=== PATIENT | female | born 1950 | race Caucasian/White ===

== ENCOUNTER 2019-01-16 22:25 | Emergency (ER) | payer MEDICARE ==
--- NOTE | 2019-01-16 23:08 | Emergency Department Report ---
ED General Adult HPI - General Chief complaint: Pain General Stated complaint: CHEST PAIN Time Seen by Provider: 01/16/19 22:59 Source: patient, EMS Mode of arrival: Stretcher Limitations: Language Barrier - History of Present Illness Initial comments: 68 yo F, hx of chronic colitis, chronic gastritis, osteoarthritis, cervical radiculopathy, chronic headaches, fibromyalgia presents from [facility] with complaint of chronic total body pain. Patient states she is not currently receiving any pain medication at [facility]. States she was taking pantoprazole and tizanidine. Patient reports that she is hungry and that she is not being fed at [facility]. -: Gradual Location: head, abdomen, left, right, upper extremity, lower extremity Quality: aching Consistency: constant Improves with: medication Worsens with: none Associated Symptoms: denies: fever/chills, loss of appetite, nausea/vomiting, shortness of breath - Related Data Allergies Allergy/AdvReac Type Severity Reaction Status Date / Time peanut Allergy Unknown Verified 01/16/19 23:31 ED Review of Systems ROS: Stated complaint: CHEST PAIN Other details as noted in HPI Comment: All other systems reviewed and negative Constitutional: denies: chills, fever Gastrointestinal: abdominal pain. denies: nausea, vomiting Musculoskeletal: arthralgia Neurological: headache ED Past Medical Hx - Past Medical History Hx GERD: Yes Additional medical history: fibromyalgia, gastritis - Surgical History Hx Cholecystectomy: Yes Hx Appendectomy: Yes Additional Surgical History: hysterectomy - Social History Smoking Status: Former Smoker Substance Use Type: None ED Physical Exam - General Limitations: Language Barrier General appearance: alert, in no apparent distress - Head Head exam: Present: atraumatic, normocephalic - Eye Eye exam: Present: normal appearance, PERRL, EOMI - ENT ENT exam: Present: mucous membranes moist - Neck Neck exam: Present: normal inspection - Respiratory Respiratory exam: Present: normal lung sounds bilaterally. Absent: respiratory distress - Cardiovascular Cardiovascular Exam: Present: normal rhythm, bradycardia - GI/Abdominal GI/Abdominal exam: Present: soft. Absent: distended, tenderness - Extremities Exam Extremities exam: Present: normal inspection - Neurological Exam Neurological exam: Present: alert, oriented X3, CN II-XII intact - Psychiatric Psychiatric exam: Present: normal affect, normal mood - Skin Skin exam: Present: warm, dry, intact, normal color ED Course Vital Signs 0901/16/19 01/16/19 22:51 23:23 23:55 Temperature 98 F Pulse Rate 56 L 56 L Respiratory 18 20 20 Rate Blood Pressure 153/67 Blood Pressure 142/71 [Right] O2 Sat by Pulse 99 100 99 Oximetry 01/17/19 01:37 Temperature 98.0 F Pulse Rate 60 Respiratory 20 Rate Blood Pressure Blood Pressure 103/62 [Right] O2 Sat by Pulse 99 Oximetry - Reevaluation(s) Reevaluation #1: 01/17/19 00:39 Pt given a meal tray and medication. Feeling much better. Will discharge at this time. ED Medical Decision Making - Medical Decision Making Pt presents to ED w/ complaint of pain all over. Pt reports that all of her pain is chronic. States she is also hungry and would like something to eat. Pt given a meal tray, protonix and zanaflex. Vitals are normal. Feeling much better, will d/c back to [facility]. Advised to f/u w/ her private physicians. - Differential Diagnosis chronic pain Critical care attestation.: If time is entered above; I have spent that time in minutes in the direct care of this critically ill patient, excluding procedure time. ED Disposition Clinical Impression: Chronic pain Disposition: DC-01 TO HOME OR SELFCARE Is pt being admited?: No Condition: Stable Instructions: Chronic Pain (ED) Referrals: PRIMARY CARE [Primary Care Provider] - 3-5 Days [facility] [Provider Group] - 3-5 Days Time of Disposition: 00:40 Print Language: TAJIK
[2019-01-16] MEDS ORDERED: ZANAFLEX PO ONE (23:32)
[2019-01-16] MEDS ORDERED: PROTONIX PO ONE (23:32)
[2019-01-17 01:38] VITALS: BP 103/62
== END 2019-01-17 01:57 | disposition home or self-care (01) ==
LOC: ED 22:25
DX: G89.29 Other chronic pain (principal); R10.9 Unspecified abdominal pain; R51 Headache; M79.18 Myalgia, other site; K21.9 Gastro-esophageal reflux disease without esophagitis; Z90.49 Acquired absence of other specified parts of digestive tract; Z87.891 Personal history of nicotine dependence